=== PATIENT | male | born 1970 | race Caucasian/White ===

== ENCOUNTER 2021-04-02 13:20 | Emergency (ER) | payer BC, SELFPAY ==
--- NOTE | 2021-04-02 14:18 | [facility].EDGENADL ---
ED Disposition Clinical Impression: Subconjunctival hemorrhage Qualifiers: Laterality: left Qualified Code(s): H11.32 - Conjunctival hemorrhage, left eye Disposition: Home, Self-Care Condition on Discharge: Good Instructions: DI for Subconjunctival Hemorrhage Additional Instructions: Making continue taking Coumadin as prescribed. Follow-up with primary care provider as previously scheduled. Follow-up with eye doctor if hemorrhage is worsening or if eye pain or changes in vision. Dr. Watson, Dr. Marr, [place] [address] Referrals: Provider,Referral, [Primary Care Provider] - - Critical Care Critical Care Time: No Attestation: On 04/02/21, the high probability of a clinically significant, sudden or life threatening deterioration of the following system(s) required my full and direct attention, intervention and personal management. The time I documented below is in addition to time spent performing reported procedures but includes the following listed in this critical care notation. Medical Decision Making - Jus Inquiry Pt receiving controlled substance: No Vital Signs: 04/02/21 14:40 Temperature 98.3 F Temperature Source Oral Pulse Rate [Right] 64 Respiratory Rate 16 Blood Pressure [Right Arm] 153/64 H Blood Pressure Mean [Right Arm] 93 Blood Pressure Source [Right Arm] Automatic Cuff Blood Pressure Position [Right Arm] Sitting 02 Sat by Pulse Oximetry 97 Oxygen Delivery Method Room Air - Lab Data Lab Results 04/02/21 14:50: WBC 6.3, RBC 4.87, Hgb 14.9, Hct 44.2, MCV 90.7, MCH 30.5, MCHC 33.7, RDW 13.7, Plt Count 258, MPV 7.7, Neut % (Auto) 61.1, Lymph % (Auto) 29.1, [place] % (Auto) 5.3, Eos % (Auto) 3.2, Baso % (Auto) 1.3, Neut # (Auto) 3.8, Lymph # (Auto) 1.8, [place] # (Auto) 0.3, Eos # (Auto) 0.2, Baso # (Auto) 0.1 04/02/21 14:50: PT 30.1 H, INR 2.88 H 04/02/21 14:50: Sodium 140, Potassium 4.3, Chloride 100, Carbon Dioxide 36 H, Anion Gap 8.3, BUN 16, Creatinine 1.00, Estimated Creat Clear 104, Estimated GFR 80, Est GFR ( Amer) 97, Glucose 88, Calcium 9.4 Result diagrams: 04/02/21 14:50 04/02/21 14:50 General Adult HPI - General Stated complaint: left eye bleeding/redness Time Seen by Provider: 04/02/21 14:18 - History of Present Illness HPI narrative: Complains of a hemorrhage on his left eye. Noticed this morning that his left eye was itchy and irritated and saw that he had hemorrhage on the white part of his eye. No trauma. No visual disturbance. He is concerned because he is on Coumadin and was concerned that this symptom might represent a stroke. 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 He takes Coumadin 8 mg on Saturday and Saturday 6 mg every other day. He states he is compliant. He recently moved here over [facility] from [place] and does not have a provider here, but has an appointment with a new provider scheduled for this week. He has not had his prothrombin time/INR checked since November 2020. He also has a seizure disorder for which she takes Keppra. Denies any other medical problems. - Related Data Allergies Allergy/AdvReac Type Severity Reaction Status Date / Time Penicillins Allergy Verified 04/02/21 14:41 [facility] History - Hepatitis A Screen Attestation statement:: This patient has been screened for Hepatitis A risk factors. I have reviewed the patient's past medical history: Yes ROS Obtained: Yes Systems reviewed as appropriate & no additional complaints - Eyes Eyes: Reports as per HPI, Denies blind spots, Denies change in vision, Reports itchy eyes (left), Denies loss of vision, Denies seeing flashes - Cardiovascular Cardiovascular: Denies chest pain - Respiratory Respiratory: Denies dyspnea - [place]
[2021-04-02 14:40] VITALS: BP 153/64; PULSE 64; RESP 16; TEMP 36.8; O2SAT 97; BMI 25.1
[2021-04-02 14:41] VITALS: BMI 25.1
[2021-04-02 15:01] LABS: Basophils # 0.1 K/mm3 (0-0.2); Basophils % 1.3 % (0.1-2.0); Eosinophils # 0.2 K/mm3 (0.0-0.4); Eosinophils % 3.2 % (0.1-12.0); Hematocrit 44.2 % (42.0-52.0); Hemoglobin 14.9 g/dL (14.1-18.0); Lymphocytes # 1.8 K/mm3 (0.7-4.5); Lymphocytes % 29.1 % (10-50); Mean Corpuscular HGB Conc 33.7 g/dL (31.8-35.4); Mean Corpuscular Hemoglobin 30.5 pg (27.0-31.2); Mean Corpuscular Volume 90.7 fl (80-94); Mean Platelet Volume 7.7 fl (7.4-10.4); Monocytes # 0.3 K/mm3 (0.1-1.0); Monocytes % 5.3 % (1.7-9.3); Neutrophils # 3.8 K/mm3 (1.8-7.8); Neutrophils % 61.1 % (37.0-80.0); Platelet Count 258 K/mm3 (142-424); Red Blood Count 4.87 M/mm3 (4.60-6.20); Red Cell Distribution Width 13.7 % (11.5-17.5); White Blood Count 6.3 K/mm3 (4.8-10.8)
[2021-04-02 15:08] LABS: Chloride 100 mmol/L (98-107); Potassium 4.3 mmoL/L (3.5-5.1); Sodium 140 mmol/L (136-145)
[2021-04-02 15:11] LABS: Anion Gap 8.3 mEq/L (5-15); Blood Urea Nitrogen 16 mg/dl (9-20); Carbon Dioxide 36 mmol/L (22.0-30.0); Creatinine Clearance Estimated 104 mL/min (50-200); Estimated Glomerular Filt Rate 80 ml/min (>60); GFR (African American) 97 ML/MIN (>60)
[2021-04-02 15:12] LABS: Calcium 9.4 mg/dl (8.4-10.2); Glucose 88 mg/dl (74-100)
[2021-04-02 15:13] LABS: INR 2.88 (0.9-1.1); Prothrombin Time 30.1 seconds (10.1-12.5)
[2021-04-02 15:58] VITALS: BP 125/68; PULSE 84; RESP 16; TEMP 36.8; O2SAT 98
== END 2021-04-02 16:00 | disposition home or self-care (01) ==
LOC: UTC 13:25 → ER 14:08
PROVIDERS: Emergency Provider Emergency Medicine
DX: H11.32 Conjunctival hemorrhage, left eye (principal); Z86.718 Personal history of other venous thrombosis and embolism; Z79.01 Long term (current) use of anticoagulants
CPT/HCPCS: 80048; 85025; 85610; 99281